=== PATIENT | female | born 1980 | race Two or more races ===

== ENCOUNTER 2024-05-29 07:04 | Emergency (ER) | payer MEDICAID, OTHER ==
[~2024-05-29] VITALS: Ht 170.2 cm; Wt 100.6 kg
[2024-05-29 08:37] VITALS: BP 118/49; PULSE 63; RESP 20; TEMP 97.6; O2SAT 97
== END 2024-05-29 08:51 | disposition left against medical advice (07) ==
LOC: ER 07:04
DX: M54.50 Low back pain, unspecified (principal); Z53.21 Procedure and treatment not carried out due to patient leaving prior to being seen by health care provider